=== PATIENT | male | born 1970 | race Caucasian/White ===

== ENCOUNTER 2017-03-31 05:44 | Inpatient (IN) | payer MEDICARE, MEDICAID ==
[~2017-03-31] VITALS: Ht 182.9 cm; Wt 210.1 kg
[2017-03-31] MEDS ORDERED: SODIUM CHLORIDE FLUSH 10ML SYR IVF ONE (06:00)
[2017-03-31] MEDS ORDERED: INSU100C SQ-INSULIN (06:09)
[2017-03-31] MEDS ORDERED: INSU100V8 SQ (06:09)
[2017-03-31] MEDS ORDERED: DILTIAZEM 5 MG/ML, 5ML ONE (06:22)
[2017-03-31] MEDS ORDERED: DILTIAZEM 5 MG/ML, 5ML IVPush ONE ×2 (06:30→08:00)
[2017-03-31 06:38] LABS: HEMATOCRIT 49.6 % (39.2-51.8); HEMOGLOBIN 15.8 g/dL (13.7-18.0); WHITE BLOOD COUNT 7.2 x10^3/uL (3.4-10)
[2017-03-31 06:51] LABS: ASPARTATE AMINO TRANSFERASE 19 U/L (15-37); BLOOD UREA NITROGEN 5 mg/dL (7-18)
[2017-03-31 06:55] LABS: IS PT STATUS REG ER OR PRE ER? YES
[2017-03-31] MEDS ORDERED: ADENOSINE 6 MG/2 ML ONE ×3 (08:18→08:33)
[2017-03-31] MEDS ORDERED: ADENOSINE 6 MG/2 ML IVPush ONE ×3 (08:30→10:30)
[2017-03-31] MEDS ORDERED: OMNIPAQUE 350 MG/ML, 150 ML BOTTLE ONE (09:11)
[2017-03-31 10:26] LABS: ANTI-Xa-UNFRACTIONATED HEP 0.01 IU/mL (0.30-0.70)
[2017-03-31] MEDS: ASPIRIN 81 MG TABLET EC PO SCH (10:47)
[2017-03-31] MEDS ORDERED: HEPARIN 5,000 UNITS/ML, 1ML ONE (10:56)
[2017-03-31] MEDS ORDERED: HEPARIN 25,000 UNITS/500ML PMX 500 ML ONE (10:57)
[2017-03-31] MEDS ORDERED: HEPARIN 5,000 UNITS/ML, 1ML IV ONE (11:00)
[2017-03-31] MEDS ORDERED: HEPARIN 25,000 UNITS/500ML PMX 500 ML IV PRN (11:00)
[2017-03-31] MEDS ORDERED: HEPARIN 5,000 UNITS/ML, 1ML IV PRN (11:00)
[2017-03-31 14:00] VITALS: BP 159/106
[2017-03-31] MEDS ORDERED: BISACODYL 10 MG SUPP PR PRN (14:00)
[2017-03-31] MEDS ORDERED: DILTIAZEM 5 MG/ML, 5ML IVPush PRN (14:00)
[2017-03-31] MEDS ORDERED: ACETAMINOPHEN 325 MG TABLET PO PRN (14:00)
[2017-03-31] MEDS ORDERED: GLUCAGON 1 MG IM PRN (14:00)
[2017-03-31] MEDS ORDERED: DEXTROSE 4 GM TAB.CHEW PO PRN (14:00)
[2017-03-31] MEDS ORDERED: DEXTROSE 50%, 50ML SYRINGE IVPush PRN (14:00)
[2017-03-31] MEDS ORDERED: POLYETHYLENE GLYCOL 17 GM PACKET PO PRN (14:00)
[2017-03-31] MEDS ORDERED: DOCUSATE 100 MG CAPSULE PO PRN (14:00)
[2017-03-31 14:55] LABS: IS PT STATUS REG ER OR PRE ER? NO
[2017-03-31] MEDS: APIXABAN 5 MG TABLET PO SCH ×2 (15:36→20:32)
[2017-03-31] MEDS: METOPROLOL TARTRATE 25 MG TABLET PO SCH (17:33)
[2017-03-31 19:44] LABS: IS PT STATUS REG ER OR PRE ER? NO
[2017-03-31 20:00] VITALS: BP 150/101
[2017-03-31] MEDS: INSULIN ASPART 100 UNITS/ML, PEN SQ-INSULIN SCH (20:22)
[2017-03-31] MEDS: SODIUM CHLORIDE FLUSH 10ML SYR IVF SCH (20:32)
[2017-03-31] MEDS ORDERED: INSULIN REGULAR 100 UNITS/ML, 3ML VIAL SQ-INSULIN SCH (21:00)
[2017-03-31 21:42] LABS: PATH.CAST-FLAG NOT PRESENT; SPERM-FLAG NOT PRESENT; SRC-FLAG NOT PRESENT; XTAL-FLAG NOT PRESENT; YLC-FLAG NOT PRESENT
[2017-04-01 02:00] VITALS: BP 138/90
[2017-04-01 05:47] LABS: HEMATOCRIT 43.9 % (39.2-51.8); HEMOGLOBIN 13.8 g/dL (13.7-18.0); WHITE BLOOD COUNT 5.8 x10^3/uL (3.4-10)
[2017-04-01 06:00] LABS: ASPARTATE AMINO TRANSFERASE 12 U/L (15-37); BLOOD UREA NITROGEN 8 mg/dL (7-18)
[2017-04-01] MEDS: METOPROLOL TARTRATE 25 MG TABLET PO SCH ×2 (06:06→17:07)
[2017-04-01] MEDS: ASPIRIN 81 MG TABLET EC PO SCH (06:06)
[2017-04-01] MEDS: INSULIN ASPART 100 UNITS/ML, PEN SQ-INSULIN SCH ×4 (07:00→21:00)
[2017-04-01 07:20] VITALS: BP 131/93
[2017-04-01] MEDS: SODIUM CHLORIDE FLUSH 10ML SYR IVF SCH ×2 (08:52→21:28)
[2017-04-01] MEDS: APIXABAN 5 MG TABLET PO SCH ×2 (08:52→21:28)
[2017-04-01 12:52] VITALS: BP 123/84
[2017-04-01 20:00] VITALS: BP 119/82
[2017-04-02 02:00] VITALS: BP 111/79
[2017-04-02] MEDS: METOPROLOL TARTRATE 25 MG TABLET PO SCH (05:19)
[2017-04-02] MEDS: ASPIRIN 81 MG TABLET EC PO SCH (05:19)
[2017-04-02 08:13] VITALS: BP 124/84
[2017-04-02] MEDS: SODIUM CHLORIDE FLUSH 10ML SYR IVF SCH (09:00)
[2017-04-02] MEDS: APIXABAN 5 MG TABLET PO SCH (10:10)
[2017-04-02] MEDS: INSULIN ASPART 100 UNITS/ML, PEN SQ-INSULIN SCH ×2 (10:10→11:00)
[2017-04-02] MEDS ORDERED: METO25TA35 PO (10:13)
[2017-04-02] MEDS ORDERED: APIX5TAB PO (10:13)
[2017-04-02] MEDS ORDERED: ASPI-621 PO (10:13)
[2017-04-02] MEDS ORDERED: PNEUMOCOCCAL VACC.PER PHARMACY IM ONE (13:30)
== END 2017-04-02 15:32 | disposition home or self-care (01) | DRG 682 ==
LOC: ED 07:23 → EDIP 10:21 → 4WST 11:45
PROVIDERS: ADMIT Family Medicine; ATTEND Family Medicine
PROC: 5A2204Z Restoration of Cardiac Rhythm, Single (ICD-10-PCS; principal; 2017-03-31)
DX: N17.9 Acute kidney failure, unspecified (principal); I26.99 Other pulmonary embolism without acute cor pulmonale; J96.00 Acute respiratory failure, unspecified whether with hypoxia or hypercapnia; J18.9 Pneumonia, unspecified organism; I11.0 Hypertensive heart disease with heart failure; I08.1 Rheumatic disorders of both mitral and tricuspid valves; I50.9 Heart failure, unspecified; Z68.44 Body mass index [BMI] 60.0-69.9, adult; E46 Unspecified protein-calorie malnutrition; E87.1 Hypo-osmolality and hyponatremia; I47.1 Supraventricular tachycardia; E66.01 Morbid (severe) obesity due to excess calories; E11.9 Type 2 diabetes mellitus without complications; I73.9 Peripheral vascular disease, unspecified; N50.82 Scrotal pain; K40.90 Unilateral inguinal hernia, without obstruction or gangrene, not specified as recurrent; R79.1 Abnormal coagulation profile; Z79.4 Long term (current) use of insulin; Z87.01 Personal history of pneumonia (recurrent); Z91.14 Patient's other noncompliance with medication regimen; Z88.0 Allergy status to penicillin
CPT/HCPCS: 36415; 71275; 74022; 74176; 76870; 80053; 81001; 82962; 83690; 83735; 83880; 84100; 84484; 85025; 85379; 85520; 85610; 85730; 87040; 87086; 92960; 93005; 96374; 96375; C8929; J0153; J1644; J1815; Q9967

== ENCOUNTER 2017-06-11 03:37 | Inpatient (IN) | payer MEDICARE, MEDICAID ==
[~2017-06-11] VITALS: Ht 182.9 cm; Wt 220.0 kg
[~2017-06-11 03:37] MED LIST: APIX5TAB PO; ASPI-621 PO; INSU100C SQ-INSULIN; INSU100V8 SQ; METO25TA35 PO
[2017-06-11] MEDS ORDERED: ADENOSINE 6 MG/2 ML ONE ×2 (03:46→03:51)
[2017-06-11] MEDS ORDERED: ADENOSINE 6 MG/2 ML IVPush ONE ×2 (04:00)
[2017-06-11] MEDS ORDERED: SODIUM CHLORIDE 0.9% 1,000ML IVBOLUS ONE ×2 (04:00→04:30)
[2017-06-11 04:08] LABS: HEMATOCRIT 53.2 % (39.2-51.8); WHITE BLOOD COUNT 11.4 x10^3/uL (3.4-10)
[2017-06-11 04:10] LABS: ASPARTATE AMINO TRANSFERASE 486 U/L (15-37); BLOOD UREA NITROGEN 35 mg/dL (7-18)
[2017-06-11 04:17] LABS: IS PT STATUS REG ER OR PRE ER? YES
[2017-06-11] MEDS ORDERED: ONDANSETRON 2MG/ML, 2ML IVPush PRN ×2 (05:00→06:00)
[2017-06-11] MEDS ORDERED: MORPHINE SULFATE 4 MG/ML, 1ML IVPush PRN (05:00)
[2017-06-11] MEDS ORDERED: SODIUM CHLORIDE 0.9% 1,000 ML IV SCH (05:53)
[2017-06-11] MEDS ORDERED: HYDROcodone/APAP 5/325 TABLET PO PRN (06:00)
[2017-06-11] MEDS ORDERED: POLYETHYLENE GLYCOL 17 GM PACKET PO PRN (06:00)
[2017-06-11] MEDS ORDERED: ACETAMINOPHEN 325 MG TABLET PO PRN (06:00)
[2017-06-11] MEDS ORDERED: DEXTROSE 4 GM TAB.CHEW PO PRN (06:00)
[2017-06-11] MEDS ORDERED: morphine SULFATE 10 MG/ML, 1ML IVPush PRN (06:00)
[2017-06-11] MEDS ORDERED: DEXTROSE 50%, 50ML SYRINGE IVPush PRN (06:00)
[2017-06-11] MEDS ORDERED: GLUCAGON 1 MG IM PRN (06:00)
[2017-06-11] MEDS ORDERED: HEPARIN 5,000 UNITS/ML, 1ML IV ONE (06:00)
[2017-06-11] MEDS ORDERED: DOCUSATE 100 MG CAPSULE PO PRN (06:00)
[2017-06-11] MEDS ORDERED: FUROSEMIDE 40 MG/4 ML ONE ×2 (09:12→20:44)
[2017-06-11] MEDS ORDERED: FUROSEMIDE 100 MG/10 ML IV ONE ×2 (09:30→21:00)
[2017-06-11] MEDS: PANTOPROZOLE 40MG TABLET PO SCH (10:04)
[2017-06-11] MEDS: SENNA/DOCUSATE TABLET PO SCH (10:05)
[2017-06-11] MEDS: ASPIRIN 81 MG TABLET EC PO SCH (10:05)
[2017-06-11] MEDS: METOPROLOL TARTRATE 25 MG TABLET PO SCH ×2 (10:06→18:39)
[2017-06-11] MEDS: SODIUM CHLORIDE FLUSH 10ML SYR IVF SCH ×2 (10:35→21:52)
[2017-06-11 10:43] LABS: ABG COLLECTION SITE RIGHT RADIAL; COLLATERAL CIRCULATION TESTING NORMAL
[2017-06-11 10:58] LABS: IS PT STATUS REG ER OR PRE ER? NO
[2017-06-11 16:37] LABS: IS PT STATUS REG ER OR PRE ER? NO
[2017-06-11] MEDS: HEPARIN 5,000 UNITS/ML, 1ML IV PRN (18:39)
[2017-06-12] MEDS: HEPARIN 25,000 UNITS/500ML PMX 500 ML IV PRN ×2 (01:11→16:08)
[2017-06-12] MEDS: HEPARIN 5,000 UNITS/ML, 1ML IV PRN ×3 (01:11→17:28)
[2017-06-12 04:00] VITALS: BP 123/82
[2017-06-12] MEDS ORDERED: SODIUM CHLORIDE 0.9% 1,000 ML IV SCH (04:30)
[2017-06-12 04:52] LABS: BLOOD UREA NITROGEN 38 mg/dL (7-18)
[2017-06-12 04:59] LABS: HEMATOCRIT 46.3 % (39.2-51.8); HEMOGLOBIN 15.1 g/dL (13.7-18.0); WHITE BLOOD COUNT 7.9 x10^3/uL (3.4-10)
[2017-06-12 05:09] LABS: ASPARTATE AMINO TRANSFERASE 246 U/L (15-37)
[2017-06-12] MEDS: ASPIRIN 81 MG TABLET EC PO SCH (06:09)
[2017-06-12] MEDS: METOPROLOL TARTRATE 25 MG TABLET PO SCH ×2 (06:16→17:30)
[2017-06-12] MEDS: PANTOPROZOLE 40MG TABLET PO SCH (08:09)
[2017-06-12] MEDS: SODIUM CHLORIDE FLUSH 10ML SYR IVF SCH ×2 (08:09→20:49)
[2017-06-12] MEDS: SENNA/DOCUSATE TABLET PO SCH (08:10)
[2017-06-12] MEDS ORDERED: FUROSEMIDE 100 MG/10 ML IV ONE (10:00)
[2017-06-13] MEDS: HEPARIN 5,000 UNITS/ML, 1ML IV PRN ×2 (01:22→09:06)
[2017-06-13 04:32] LABS: HEMATOCRIT 45.3 % (39.2-51.8); HEMOGLOBIN 14.5 g/dL (13.7-18.0); WHITE BLOOD COUNT 7.9 x10^3/uL (3.4-10)
[2017-06-13 04:45] LABS: BLOOD UREA NITROGEN 43 mg/dL (7-18)
[2017-06-13 04:50] LABS: ASPARTATE AMINO TRANSFERASE 138 U/L (15-37)
[2017-06-13] MEDS: ASPIRIN 81 MG TABLET EC PO SCH (05:41)
[2017-06-13] MEDS: METOPROLOL TARTRATE 25 MG TABLET PO SCH ×2 (05:45→17:33)
[2017-06-13] MEDS: HEPARIN 25,000 UNITS/500ML PMX 500 ML IV PRN ×2 (07:34→18:24)
[2017-06-13] MEDS ORDERED: FUROSEMIDE 100 MG/10 ML IV ONE (09:00)
[2017-06-13] MEDS: PANTOPROZOLE 40MG TABLET PO SCH (09:04)
[2017-06-13] MEDS: SENNA/DOCUSATE TABLET PO SCH (09:04)
[2017-06-13] MEDS: SODIUM CHLORIDE FLUSH 10ML SYR IVF SCH ×2 (09:06→19:53)
[2017-06-14] MEDS: HEPARIN 25,000 UNITS/500ML PMX 500 ML IV PRN (05:18)
[2017-06-14] MEDS: ASPIRIN 81 MG TABLET EC PO SCH (05:21)
[2017-06-14] MEDS: METOPROLOL TARTRATE 25 MG TABLET PO SCH ×2 (05:23→18:27)
[2017-06-14 06:06] LABS: HEMOGLOBIN 14.1 g/dL (13.7-18.0)
[2017-06-14 06:09] LABS: BLOOD UREA NITROGEN 48 mg/dL (7-18)
[2017-06-14] MEDS: HEPARIN 5,000 UNITS/ML, 1ML IV PRN (06:20)
[2017-06-14] MEDS: SENNA/DOCUSATE TABLET PO SCH (08:00)
[2017-06-14] MEDS: PANTOPROZOLE 40MG TABLET PO SCH (08:00)
[2017-06-14] MEDS: SODIUM CHLORIDE FLUSH 10ML SYR IVF SCH ×2 (08:01→20:43)
[2017-06-14] MEDS: APIXABAN 5 MG TABLET PO SCH ×2 (09:33→20:43)
[2017-06-14] MEDS ORDERED: FUROSEMIDE 100 MG/10 ML IV ONE (10:00)
[2017-06-14 19:56] VITALS: BP 124/84
[2017-06-15 02:00] VITALS: BP 95/62
[2017-06-15 04:18] VITALS: BP 102/68
[2017-06-15] MEDS: ASPIRIN 81 MG TABLET EC PO SCH (05:50)
[2017-06-15] MEDS: METOPROLOL TARTRATE 25 MG TABLET PO SCH ×2 (05:50→17:38)
[2017-06-15 08:01] VITALS: BP 116/79
[2017-06-15] MEDS: SODIUM CHLORIDE FLUSH 10ML SYR IVF SCH ×2 (08:07→22:07)
[2017-06-15] MEDS: APIXABAN 5 MG TABLET PO SCH ×2 (08:07→22:07)
[2017-06-15] MEDS: PANTOPROZOLE 40MG TABLET PO SCH (08:08)
[2017-06-15] MEDS: SENNA/DOCUSATE TABLET PO SCH (08:08)
[2017-06-15] MEDS ORDERED: FUROSEMIDE 100 MG/10 ML IV ONE (11:00)
[2017-06-15 12:54] VITALS: BP 113/76
[2017-06-15 13:48] VITALS: BP 125/84
[2017-06-15] MEDS ORDERED: DEXTROSE 50%, 50ML SYRINGE IVPush PRN (18:30)
[2017-06-15] MEDS ORDERED: POLYETHYLENE GLYCOL 17 GM PACKET PO PRN (18:30)
[2017-06-15] MEDS ORDERED: morphine SULFATE 10 MG/ML, 1ML IVPush PRN (18:30)
[2017-06-15] MEDS ORDERED: GLUCAGON 1 MG IM PRN (18:30)
[2017-06-15] MEDS ORDERED: HYDROcodone/APAP 5/325 TABLET PO PRN (18:30)
[2017-06-15] MEDS ORDERED: ACETAMINOPHEN 325 MG TABLET PO PRN ×2 (18:30→19:00)
[2017-06-15] MEDS ORDERED: ONDANSETRON 2MG/ML, 2ML IVPush PRN (18:30)
[2017-06-15] MEDS ORDERED: DOCUSATE 100 MG CAPSULE PO PRN (18:30)
[2017-06-15 20:46] VITALS: BP 101/68
[2017-06-16 00:30] VITALS: BP 105/73
[2017-06-16 04:33] VITALS: BP 109/73
[2017-06-16] MEDS: ASPIRIN 81 MG TABLET EC PO SCH (05:09)
[2017-06-16] MEDS: METOPROLOL TARTRATE 25 MG TABLET PO SCH ×2 (05:09→20:57)
[2017-06-16 05:23] LABS: BLOOD UREA NITROGEN 44 mg/dL (7-18)
[2017-06-16 07:06] VITALS: BP 123/80
[2017-06-16] MEDS: SENNA/DOCUSATE TABLET PO SCH (08:01)
[2017-06-16] MEDS: PANTOPROZOLE 40MG TABLET PO SCH (08:01)
[2017-06-16] MEDS: SODIUM CHLORIDE FLUSH 10ML SYR IVF SCH ×2 (08:01→20:57)
[2017-06-16] MEDS: APIXABAN 5 MG TABLET PO SCH ×2 (08:01→20:57)
[2017-06-16 13:26] VITALS: BP 119/83
[2017-06-16 16:13] VITALS: BP 131/84
[2017-06-16] MEDS ORDERED: ALBUTEROL SULFATE 2.5 MG/3 ML ONE (20:10)
[2017-06-16 20:59] VITALS: BP 131/82
[2017-06-16 21:33] LABS: ABG COLLECTION SITE LEFT BRACHIAL
[2017-06-16] MEDS ORDERED: CEFTRIAXONE PMX 1GM/50ML 50 ML IV SCH (22:00)
[2017-06-16] MEDS: AZITHROMYCIN 500 MG in SODIUM CHLORIDE 0.9% 250 ML IV SCH (23:14)
[2017-06-17] MEDS: LEVOFLOXACIN/PMX 750MG/150ML 150 ML IV SCH (01:08)
[2017-06-17 02:09] VITALS: BP 100/65
[2017-06-17] MEDS: ASPIRIN 81 MG TABLET EC PO SCH (05:57)
[2017-06-17] MEDS: METOPROLOL TARTRATE 25 MG TABLET PO SCH ×3 (05:57→21:33)
[2017-06-17] MEDS ORDERED: ALBUTEROL SULFATE 2.5 MG/3 ML ONE (07:28)
[2017-06-17] MEDS ORDERED: FUROSEMIDE 40 MG/4 ML IV ONE (07:30)
[2017-06-17] MEDS: ALBUTEROL SULFATE 2.5 MG/3 ML NPPB SCH ×4 (07:31→22:13)
[2017-06-17 08:20] VITALS: BP 133/88
[2017-06-17 08:51] LABS: ABG COLLECTION SITE RIGHT RADIAL; COLLATERAL CIRCULATION TESTING NORMAL
[2017-06-17] MEDS: APIXABAN 5 MG TABLET PO SCH ×2 (09:56→21:33)
[2017-06-17] MEDS: PANTOPROZOLE 40MG TABLET PO SCH (09:56)
[2017-06-17] MEDS: SENNA/DOCUSATE TABLET PO SCH (09:56)
[2017-06-17] MEDS: SODIUM CHLORIDE FLUSH 10ML SYR IVF SCH ×2 (09:57→21:32)
[2017-06-17 14:55] VITALS: BP 117/78
[2017-06-17] MEDS ORDERED: ALBUTEROL SULFATE 2.5 MG/3 ML NPPB SCH (15:00)
[2017-06-17 18:45] LABS: ABG COLLECTION SITE RIGHT BRACHIAL
[2017-06-17] MEDS: AZITHROMYCIN 500 MG in SODIUM CHLORIDE 0.9% 250 ML IV SCH (21:40)
[2017-06-18] MEDS: ALBUTEROL SULFATE 2.5 MG/3 ML NPPB SCH ×6 (02:11→22:38)
[2017-06-18] MEDS: LEVOFLOXACIN/PMX 750MG/150ML 150 ML IV SCH (02:16)
[2017-06-18 04:52] LABS: ABG COLLECTION SITE LEFT RADIAL; COLLATERAL CIRCULATION TESTING NORMAL
[2017-06-18 04:53] LABS: HEMATOCRIT 42.7 % (39.2-51.8); HEMOGLOBIN 13.6 g/dL (13.7-18.0); WHITE BLOOD COUNT 5.9 x10^3/uL (3.4-10)
[2017-06-18 05:01] LABS: BLOOD UREA NITROGEN 40 mg/dL (7-18)
[2017-06-18] MEDS: METOPROLOL TARTRATE 25 MG TABLET PO SCH ×2 (06:04→17:42)
[2017-06-18] MEDS: ASPIRIN 81 MG TABLET EC PO SCH (06:04)
[2017-06-18] MEDS: APIXABAN 5 MG TABLET PO SCH ×2 (08:34→20:55)
[2017-06-18] MEDS: SODIUM CHLORIDE FLUSH 10ML SYR IVF SCH ×2 (08:34→20:55)
[2017-06-18] MEDS: SENNA/DOCUSATE TABLET PO SCH (08:34)
[2017-06-18] MEDS: PANTOPROZOLE 40MG TABLET PO SCH (08:34)
[2017-06-18] MEDS ORDERED: FUROSEMIDE 20 MG/2 ML IV SCH (09:00)
[2017-06-18] MEDS ORDERED: FUROSEMIDE 40 MG/4 ML IV SCH (21:00)
[2017-06-19] MEDS: ALBUTEROL SULFATE 2.5 MG/3 ML NPPB SCH ×6 (03:00→22:25)
[2017-06-19 04:31] LABS: ABG COLLECTION SITE RIGHT RADIAL; COLLATERAL CIRCULATION TESTING NORMAL
[2017-06-19 04:32] LABS: HEMATOCRIT 44.3 % (39.2-51.8); HEMOGLOBIN 13.9 g/dL (13.7-18.0); WHITE BLOOD COUNT 5.4 x10^3/uL (3.4-10)
[2017-06-19 04:41] LABS: BLOOD UREA NITROGEN 36 mg/dL (7-18)
[2017-06-19 04:44] LABS: ASPARTATE AMINO TRANSFERASE 18 U/L (15-37)
[2017-06-19] MEDS: ASPIRIN 81 MG TABLET EC PO SCH (05:55)
[2017-06-19] MEDS: METOPROLOL TARTRATE 25 MG TABLET PO SCH ×2 (05:59→17:13)
[2017-06-19] MEDS ORDERED: MAGNESIUM SULFATE PMX 4GM/100M 100 ML IV ONE (07:30)
[2017-06-19] MEDS: PANTOPROZOLE 40MG TABLET PO SCH (07:53)
[2017-06-19] MEDS: APIXABAN 5 MG TABLET PO SCH ×2 (07:54→21:28)
[2017-06-19] MEDS: SENNA/DOCUSATE TABLET PO SCH (07:54)
[2017-06-19] MEDS: SODIUM CHLORIDE FLUSH 10ML SYR IVF SCH ×2 (07:54→21:28)
[2017-06-19] MEDS: FUROSEMIDE 40 MG/4 ML IV SCH ×2 (08:44→21:28)
[2017-06-19] MEDS ORDERED: METOPROLOL TARTRATE 50 MG TABLET ONE (17:00)
[2017-06-20] MEDS: ALBUTEROL SULFATE 2.5 MG/3 ML NPPB SCH ×4 (02:39→15:00)
[2017-06-20 05:33] LABS: HEMATOCRIT 42.7 % (39.2-51.8); HEMOGLOBIN 13.7 g/dL (13.7-18.0); WHITE BLOOD COUNT 5.5 x10^3/uL (3.4-10)
[2017-06-20 05:37] LABS: BLOOD UREA NITROGEN 30 mg/dL (7-18)
[2017-06-20 05:39] LABS: ASPARTATE AMINO TRANSFERASE 21 U/L (15-37)
[2017-06-20] MEDS: METOPROLOL TARTRATE 25 MG TABLET PO SCH (06:20)
[2017-06-20] MEDS: ASPIRIN 81 MG TABLET EC PO SCH (06:20)
[2017-06-20] MEDS: SODIUM CHLORIDE FLUSH 10ML SYR IVF SCH (08:21)
[2017-06-20] MEDS: SENNA/DOCUSATE TABLET PO SCH (08:21)
[2017-06-20] MEDS: APIXABAN 5 MG TABLET PO SCH (08:21)
[2017-06-20] MEDS: PANTOPROZOLE 40MG TABLET PO SCH (08:21)
[2017-06-20] MEDS ORDERED: FURO10VI37 IV (13:52)
[2017-06-20] MEDS ORDERED: PANT40TA5 PO (13:52)
[2017-06-20] MEDS ORDERED: FUROSEMIDE 40 MG/4 ML IV SCH (17:00)
== END 2017-06-20 15:30 | DRG 682 ==
LOC: ED 03:51 → EDIP 04:46 → CCU 06:23 → 4NOR 06-14 13:55 → CCU 06-17 17:01
PROVIDERS: ADMIT Family Medicine; ATTEND Family Medicine
PROC: 0T9B70Z Drainage of Bladder with Drainage Device, Via Natural or Artificial Opening (ICD-10-PCS; 2017-06-11)
PROC: 5A09457 Assistance with Respiratory Ventilation, 24-96 Consecutive Hours, Continuous Positive Airway Pressure (ICD-10-PCS; 2017-06-11)
PROC: 5A09357 Assistance with Respiratory Ventilation, Less than 24 Consecutive Hours, Continuous Positive Airway Pressure (ICD-10-PCS; 2017-06-12)
PROC: 5A2204Z Restoration of Cardiac Rhythm, Single (ICD-10-PCS; principal; 2017-06-17)
PROC: 5A09457 Assistance with Respiratory Ventilation, 24-96 Consecutive Hours, Continuous Positive Airway Pressure (ICD-10-PCS; 2017-06-17)
DX: N17.0 Acute kidney failure with tubular necrosis (principal); J96.01 Acute respiratory failure with hypoxia; I50.33 Acute on chronic diastolic (congestive) heart failure; J18.9 Pneumonia, unspecified organism; D68.69 Other thrombophilia; E11.22 Type 2 diabetes mellitus with diabetic chronic kidney disease; E11.51 Type 2 diabetes mellitus with diabetic peripheral angiopathy without gangrene; D75.1 Secondary polycythemia; I47.1 Supraventricular tachycardia; E87.1 Hypo-osmolality and hyponatremia; Z68.44 Body mass index [BMI] 60.0-69.9, adult; J44.1 Chronic obstructive pulmonary disease with (acute) exacerbation; J44.0 Chronic obstructive pulmonary disease with (acute) lower respiratory infection; E87.2 Acidosis; J98.11 Atelectasis; N18.9 Chronic kidney disease, unspecified; E66.01 Morbid (severe) obesity due to excess calories; I27.81 Cor pulmonale (chronic); R74.0 Nonspecific elevation of levels of transaminase and lactic acid dehydrogenase [LDH]; Z51.5 Encounter for palliative care; Z79.01 Long term (current) use of anticoagulants; Z86.711 Personal history of pulmonary embolism; Z91.14 Patient's other noncompliance with medication regimen; Z88.0 Allergy status to penicillin
CPT/HCPCS: 36415; 36600; 71010; 80048; 80053; 81001; 82803; 82962; 83036; 83735; 83880; 84100; 84443; 84484; 85025; 85520; 87040; 87081; 87086; 93005; 93306; 93970; 94640; 94660; 96374; J0153; J0456; J1644; J1940; J1956; J7613; J2270; J3475; J7030; J7050

== ENCOUNTER 2017-06-30 18:35 | Inpatient (IN) | payer MEDICARE, MEDICAID ==
[~2017-06-30] VITALS: Ht 182.9 cm; Wt 219.6 kg
[~2017-06-30 18:35] MED LIST changes: +FURO10VI37 IV; +PANT40TA5 PO
[2017-06-30 19:26] LABS: HEMATOCRIT 40.5 % (39.2-51.8); HEMOGLOBIN 12.5 g/dL (13.7-18.0); WHITE BLOOD COUNT 6.1 x10^3/uL (3.4-10)
[2017-06-30 19:32] LABS: BLOOD UREA NITROGEN 22 mg/dL (7-18)
[2017-06-30 19:33] LABS: IS PT STATUS REG ER OR PRE ER? YES
[2017-06-30] MEDS ORDERED: ASPI-496 PO (21:00)
[2017-06-30] MEDS ORDERED: MAGN400T36 PO (21:00)
[2017-06-30] MEDS ORDERED: ONDANSETRON 2MG/ML, 2ML IVPush PRN (22:00)
[2017-06-30] MEDS ORDERED: ACETAMINOPHEN 325 MG TABLET PO PRN (22:00)
[2017-06-30] MEDS ORDERED: POLYETHYLENE GLYCOL 17 GM PACKET PO PRN (22:00)
[2017-06-30] MEDS ORDERED: BISACODYL 10 MG SUPP PR PRN (22:00)
[2017-06-30 22:48] VITALS: BP 123/83
[2017-06-30] MEDS: SODIUM CHLORIDE FLUSH 10ML SYR IVF SCH (23:30)
[2017-06-30] MEDS: FUROSEMIDE 40 MG/4 ML IV SCH (23:30)
[2017-06-30] MEDS: INSULIN ASPART 100 UNITS/ML, PEN SQ-INSULIN SCH (23:32)
[2017-06-30 23:39] VITALS: BP 123/75
[2017-07-01 01:54] LABS: IS PT STATUS REG ER OR PRE ER? NO
[2017-07-01 02:17] VITALS: BP 118/82
[2017-07-01 04:54] LABS: WHITE BLOOD COUNT 4.8 x10^3/uL (3.4-10)
[2017-07-01] MEDS: METOPROLOL TARTRATE 25 MG TABLET PO SCH ×2 (05:53→17:34)
[2017-07-01 06:50] VITALS: BP 103/69
[2017-07-01] MEDS: INSULIN ASPART 100 UNITS/ML, PEN SQ-INSULIN SCH ×4 (07:00→20:07)
[2017-07-01 07:40] LABS: BLOOD UREA NITROGEN 19 mg/dL (7-18)
[2017-07-01 07:46] LABS: ASPARTATE AMINO TRANSFERASE 18 U/L (15-37)
[2017-07-01 08:14] LABS: IS PT STATUS REG ER OR PRE ER? NO
[2017-07-01] MEDS: SENNA/DOCUSATE TABLET PO SCH (09:00)
[2017-07-01] MEDS: MAGNESIUM OXIDE 400 MG TABLET PO SCH (09:43)
[2017-07-01] MEDS: FUROSEMIDE 40 MG/4 ML IV SCH ×2 (09:43→17:33)
[2017-07-01] MEDS: ASPIRIN 81 MG TABLET EC PO SCH (09:43)
[2017-07-01] MEDS: APIXABAN 5 MG TABLET PO SCH ×2 (09:43→20:06)
[2017-07-01] MEDS: SODIUM CHLORIDE FLUSH 10ML SYR IVF SCH ×2 (09:44→20:07)
[2017-07-01 14:23] VITALS: BP 101/68
[2017-07-01 18:48] VITALS: BP 112/74
[2017-07-01 23:00] VITALS: BP 109/70
[2017-07-02 01:35] VITALS: BP 133/74
[2017-07-02] MEDS: METOPROLOL TARTRATE 25 MG TABLET PO SCH ×2 (05:38→17:37)
[2017-07-02] MEDS: INSULIN ASPART 100 UNITS/ML, PEN SQ-INSULIN SCH ×4 (07:00→21:00)
[2017-07-02] MEDS: FUROSEMIDE 40 MG/4 ML IV SCH (07:30)
[2017-07-02] MEDS: SENNA/DOCUSATE TABLET PO SCH (09:00)
[2017-07-02 09:16] VITALS: BP 92/63
[2017-07-02] MEDS: ASPIRIN 81 MG TABLET EC PO SCH (09:47)
[2017-07-02] MEDS: MAGNESIUM OXIDE 400 MG TABLET PO SCH (09:47)
[2017-07-02] MEDS: APIXABAN 5 MG TABLET PO SCH ×2 (09:47→22:11)
[2017-07-02] MEDS: SODIUM CHLORIDE FLUSH 10ML SYR IVF SCH ×2 (09:48→21:00)
[2017-07-02 14:48] VITALS: BP 119/77
[2017-07-02 19:27] VITALS: BP 105/71
[2017-07-03 01:56] VITALS: BP 112/75
[2017-07-03] MEDS: METOPROLOL TARTRATE 25 MG TABLET PO SCH ×2 (05:21→17:04)
[2017-07-03] MEDS: INSULIN ASPART 100 UNITS/ML, PEN SQ-INSULIN SCH ×4 (07:00→20:46)
[2017-07-03 08:07] VITALS: BP 114/73
[2017-07-03] MEDS: APIXABAN 5 MG TABLET PO SCH ×2 (08:16→20:45)
[2017-07-03] MEDS: MAGNESIUM OXIDE 400 MG TABLET PO SCH (08:16)
[2017-07-03] MEDS: SENNA/DOCUSATE TABLET PO SCH (08:16)
[2017-07-03] MEDS: ASPIRIN 81 MG TABLET EC PO SCH (08:16)
[2017-07-03] MEDS: SODIUM CHLORIDE FLUSH 10ML SYR IVF SCH ×2 (08:17→20:47)
[2017-07-03] MEDS ORDERED: FURO-92 PO (08:44)
[2017-07-03 14:30] VITALS: BP 119/81
[2017-07-03 20:33] VITALS: BP 115/75
[2017-07-04 01:55] VITALS: BP 105/65
[2017-07-04 05:59] VITALS: BP 114/75
[2017-07-04] MEDS: METOPROLOL TARTRATE 25 MG TABLET PO SCH (06:02)
[2017-07-04 06:55] VITALS: BP 109/82
[2017-07-04] MEDS: INSULIN ASPART 100 UNITS/ML, PEN SQ-INSULIN SCH ×2 (07:00→11:00)
[2017-07-04] MEDS: ASPIRIN 81 MG TABLET EC PO SCH (08:58)
[2017-07-04] MEDS: MAGNESIUM OXIDE 400 MG TABLET PO SCH (08:58)
[2017-07-04] MEDS: SENNA/DOCUSATE TABLET PO SCH (08:58)
[2017-07-04] MEDS: APIXABAN 5 MG TABLET PO SCH (08:58)
[2017-07-04] MEDS: SODIUM CHLORIDE FLUSH 10ML SYR IVF SCH (08:59)
[2017-07-04 15:00] VITALS: BP 124/74
== END 2017-07-04 16:00 | DRG 189 ==
LOC: ED 19:28 → 5SO 20:59 → 4WST 07-01 23:17
PROVIDERS: ADMIT Family Medicine; ATTEND Internal Medicine
DX: J96.21 Acute and chronic respiratory failure with hypoxia (principal); E87.4 Mixed disorder of acid-base balance; D68.59 Other primary thrombophilia; E44.0 Moderate protein-calorie malnutrition; E11.51 Type 2 diabetes mellitus with diabetic peripheral angiopathy without gangrene; E66.2 Morbid (severe) obesity with alveolar hypoventilation; E87.1 Hypo-osmolality and hyponatremia; Z68.44 Body mass index [BMI] 60.0-69.9, adult; I24.8 Other forms of acute ischemic heart disease; E88.81 Metabolic syndrome and other insulin resistance; I11.0 Hypertensive heart disease with heart failure; I50.9 Heart failure, unspecified; I87.8 Other specified disorders of veins; J44.9 Chronic obstructive pulmonary disease, unspecified; Z66 Do not resuscitate; I25.2 Old myocardial infarction; Z72.0 Tobacco use; Z79.4 Long term (current) use of insulin; Z86.711 Personal history of pulmonary embolism; Z88.0 Allergy status to penicillin
CPT/HCPCS: 36415; 71010; 80048; 80053; 82040; 82962; 83880; 84484; 85025; 85610; 85730; 93005; J1815; J1940

== ENCOUNTER 2017-07-29 14:17 | Emergency (ER) | payer MEDICARE, MEDICAID ==
[~2017-07-29] VITALS: Ht 182.9 cm; Wt 219.5 kg
[~2017-07-29 14:17] MED LIST changes: +ASPI-496 PO; +FURO-92 PO; +MAGN400T36 PO
[2017-07-29] MEDS ORDERED: TRAM50TA2 PO (14:46)
[2017-07-29] MEDS ORDERED: DOXY50CA42 PO (14:46)
[2017-07-29] MEDS ORDERED: FURO40TA6 PO (14:46)
[2017-07-29] MEDS ORDERED: OMEP20TA62 PO (14:46)
[2017-07-29] MEDS ORDERED: LISINOPRIL 20 MG TABLET ONE (16:28)
[2017-07-29] MEDS ORDERED: LISINOPRIL 20 MG TABLET PO ONE (16:30)
[2017-07-29 16:46] VITALS: BP 143/92
== END 2017-07-29 18:45 | disposition home or self-care (01) ==
LOC: ED 17:13
DX: I10 Essential (primary) hypertension (principal); J44.9 Chronic obstructive pulmonary disease, unspecified; E11.9 Type 2 diabetes mellitus without complications; I11.0 Hypertensive heart disease with heart failure; I50.9 Heart failure, unspecified; Z86.711 Personal history of pulmonary embolism; Z88.0 Allergy status to penicillin
CPT/HCPCS: 36415; 80047; 93005; 99285

== ENCOUNTER → 2017-10-13 | Outpatient (CLI) | payer MEDICARE, MEDICAID ==
[~2017-10-13] MED LIST changes: +DOXY50CA42 PO; +FURO40TA6 PO; +OMEP20TA62 PO; +TRAM50TA2 PO
== END | disposition home or self-care (01) ==
LOC: WOUND 11:45
PROVIDERS: ATTEND Internal Medicine
DX: E11.621 Type 2 diabetes mellitus with foot ulcer (principal); L89.623 Pressure ulcer of left heel, stage 3; L97.421 Non-pressure chronic ulcer of left heel and midfoot limited to breakdown of skin; L97.521 Non-pressure chronic ulcer of other part of left foot limited to breakdown of skin; E11.42 Type 2 diabetes mellitus with diabetic polyneuropathy; I11.0 Hypertensive heart disease with heart failure; I50.9 Heart failure, unspecified; J44.9 Chronic obstructive pulmonary disease, unspecified; E66.01 Morbid (severe) obesity due to excess calories; Z86.711 Personal history of pulmonary embolism; Z68.41 Body mass index [BMI] 40.0-44.9, adult; Z79.4 Long term (current) use of insulin
CPT/HCPCS: 11042; G0463; WOU0463

== ENCOUNTER → 2017-11-03 | Outpatient (CLI) | payer MEDICARE, MEDICAID | END | disposition home or self-care (01) | LOC: WOUND 13:00 | PROVIDERS: ATTEND Family Medicine | DX: E11.621 Type 2 diabetes mellitus with foot ulcer (principal); L97.521 Non-pressure chronic ulcer of other part of left foot limited to breakdown of skin; L97.421 Non-pressure chronic ulcer of left heel and midfoot limited to breakdown of skin; L89.623 Pressure ulcer of left heel, stage 3; E66.01 Morbid (severe) obesity due to excess calories; J44.9 Chronic obstructive pulmonary disease, unspecified; I11.0 Hypertensive heart disease with heart failure; I50.9 Heart failure, unspecified; E11.42 Type 2 diabetes mellitus with diabetic polyneuropathy; Z68.41 Body mass index [BMI] 40.0-44.9, adult; Z79.4 Long term (current) use of insulin; Z86.711 Personal history of pulmonary embolism | CPT/HCPCS: 17250; 97597 ==

== ENCOUNTER 2019-02-20 18:38 | Inpatient (IN) | payer MEDICARE, MEDICAID ==
[~2019-02-20] VITALS: Ht 185.4 cm; Wt 165.1 kg
[2019-02-23 06:45] VITALS: BP 106/70
== END 2019-02-23 12:12 | disposition home health service (06) | DRG 637 ==
LOC: ED 19:55 → EDIP 20:58 → 4WST 22:10 → DCLOUNGE 02-23 11:59
PROVIDERS: ADMIT Family Medicine; ATTEND Family Medicine
DX: E11.65 Type 2 diabetes mellitus with hyperglycemia (principal); E11.00 Type 2 diabetes mellitus with hyperosmolarity without nonketotic hyperglycemic-hyperosmolar coma (NKHHC); Z68.42 Body mass index [BMI] 45.0-49.9, adult; E87.1 Hypo-osmolality and hyponatremia; N39.0 Urinary tract infection, site not specified; E11.42 Type 2 diabetes mellitus with diabetic polyneuropathy; I11.0 Hypertensive heart disease with heart failure; M54.9 Dorsalgia, unspecified; I50.9 Heart failure, unspecified; I87.2 Venous insufficiency (chronic) (peripheral); J44.9 Chronic obstructive pulmonary disease, unspecified; E11.51 Type 2 diabetes mellitus with diabetic peripheral angiopathy without gangrene; F17.220 Nicotine dependence, chewing tobacco, uncomplicated; E66.01 Morbid (severe) obesity due to excess calories; Z79.01 Long term (current) use of anticoagulants; Z86.711 Personal history of pulmonary embolism; Z83.3 Family history of diabetes mellitus; Z87.01 Personal history of pneumonia (recurrent); Z79.899 Other long term (current) drug therapy; Z79.4 Long term (current) use of insulin
CPT/HCPCS: 36415; 71045; 80048; 80053; 81001; 82010; 82803; 82962; 83036; 83690; 83880; 84484; 85025; 87086; 93005; 96360; 96361; 96372; 99285; G0378; J1815; J7030

== ENCOUNTER 2021-01-12 07:09 | Observation (INO) | payer MEDICARE, MEDICAID ==
[~2021-01-12] VITALS: Ht 182.9 cm; Wt 182.3 kg
[~2021-01-12 07:09] MED LIST changes: -ASPI-621 PO; +ASPI81TA45 PO; +GABA300C10 PO; +INSU100I13 SQ-INSULIN; +LOSA25TA25 PO; -PANT40TA5 PO; +PANT40TA6 PO; +POTA20PA31 PO
--- NOTE | 2021-01-12 07:27 | NUR ---
PT BIBA. PER EMS PT HAS HAD FEVER AND SOB X3DAYS. PER PT HE HAD A FEVER OF 105F, BUT IT HAS SLOWLY GONE DONE SINCE. PT CURRENT TEMPERATURE 98.5F ORALLY. PT ALSO REPORTS FEELING SOB WHEN LYING DOWN THE LAST FEW DAYS, PT DOES HAVE HX OF CHF. PT STATES HE HAS NOT HAD COVID VACCINE, BUT ALSO HAS BEEN ISOLATING AT HOME. PER EMS PT HAD SPO2 SAT OF 89% UPON THEIR ARRIVAL, PT DOES NOT NORMALLY WEAR O2. PT CURRENTLY 95% ON 1L NASRA. JOHNNY GARRETT AND DR. ISBELL AT BEDSIDE FOR EVAL. PT RESTING IN [facility], MONITORING IN PLACE, EKG DONE UPON ARRIVAL, NADN AT THIS TIME, WCTM.
[2021-01-12] MEDS ORDERED: SODIUM CHLORIDE FLUSH 10ML SYR IVF ONE (07:30)
[2021-01-12] MEDS ORDERED: SODIUM CHLORIDE 0.9% 1,000 ML IV ONE (07:30)
[2021-01-12 07:50] LABS: RAPID INFLUENZA A Negative (Negative); RAPID INFLUENZA B Negative (Negative)
[2021-01-12 07:58] LABS: BASOPHILS % (AUTO) 1 % (0-1); EOSINOPHILS % (AUTO) 1 % (1-7); LYMPHOCYTES % (AUTO) 11 % (22-44); MEAN CORPUSCULAR HEMOGLOBIN 30.9 pg (27.5-34.5); MEAN CORPUSCULAR HGB CONC 33.7 g/dL (33.2-36.2); MEAN PLATELET VOLUME 8.4 fL (7.4-10.4); MONOCYTES % (AUTO) 8 % (2-9); NEUTROPHILS % (AUTO) 79 % (42-75); PLATELET COUNT 239 x10^3/uL (130-400); RED BLOOD COUNT 5.53 x10^6/uL (4.38-5.82); RED CELL DISTRIBUTION WIDTH 14.4 % (9.4-14.8)
[2021-01-12 08:09] LABS: ALANINE AMINOTRANSFERASE 24 U/L (12-78); ALBUMIN 2.7 g/dL (3.4-5.0); ANION GAP 7 mmol/L (5-15); CALCIUM 8.2 mg/dL (8.5-10.1); CHLORIDE 98 mmol/L (98-107); CREATININE 1.33 mg/dL (0.7-1.3)
[2021-01-12 08:13] LABS: ALKALINE PHOSPHATASE 138 U/L (45-117); BILIRUBIN,TOTAL 0.4 mg/dL (0.2-1.0); TROPONIN I < 0.015 ng/mL (0.000-0.045)
[2021-01-12] MEDS ORDERED: SODIUM CHLORIDE 0.9% 1,000ML IVBOLUS ONE (08:30)
[2021-01-12] MEDS ORDERED: CEFTRIAXONE 1,000 MG in DEXTROSE 5% 50 ML IVPB ONE ×2 (08:30→10:30)
--- NOTE | 2021-01-12 08:54 | NUR ---
RECEIVED REPORT AND ASSUMED PT. CARE. PT. IS RESTING WITH THE CP MONITOR IN PLACE. IV ABX ARE INFUSING. SIDERAILS REMAIN UP X 2 WITH THE CALL LIGHT IN PLACE. PT. IS RESTING WITHOUT CONCERNS AT THIS TIME.
--- NOTE | 2021-01-12 09:02 | NUR ---
REPORT TO DARIUS FOSTER.
--- NOTE | 2021-01-12 09:18 | NUR ---
FIRST ATTEMPT TO CALL REPORT.
[2021-01-12 09:57] LABS: C-REACTIVE PROTEIN, QUANT 6.6 mg/dL (0.02-0.49)
[2021-01-12] MEDS ORDERED: hydrALAzine 20 MG/ML, 1ML IVPush PRN (10:30)
[2021-01-12] MEDS ORDERED: MELATONIN 5 MG TABLET PO PRN (10:30)
[2021-01-12] MEDS ORDERED: ACETAMINOPHEN 325 MG TABLET PO PRN (10:30)
[2021-01-12] MEDS ORDERED: ONDANSETRON 2MG/ML, 2ML IVPush PRN (10:30)
--- NOTE | 2021-01-12 10:43 | NUR ---
REPORT WAS CALLLED TO DULCE MARIA MCCOY. PT.'S IV ABX ARE INFUSING ON THE PUMP. PT. HAS NO COMPLAINTS AT THIS TIME. VSS. PT. IS READY FOR TRANSPORT.
[2021-01-12] MEDS ORDERED: METRONIDAZOLE PMX 500MG/100ML 100 ML ONE (10:46)
[2021-01-12] MEDS: METRONIDAZOLE PMX 500MG/100ML 100 ML IV SCH ×2 (10:52→18:29)
[2021-01-12] MEDS ORDERED: ATOR-2 PO (11:34)
[2021-01-12] MEDS ORDERED: ATOR20TA37 PO (11:34)
[2021-01-12 11:57] VITALS: BP 106/77
[2021-01-12] MEDS: INSULIN LISPRO 100 UNITS/ML, PEN SQ-INSULIN SCH ×5 (12:41→21:09)
[2021-01-12 15:20] VITALS: BP 117/86
[2021-01-12 20:11] VITALS: BP 112/72
[2021-01-12] MEDS: GABAPENTIN 300 MG CAPSULE PO SCH (20:56)
[2021-01-12] MEDS: APIXABAN 5 MG TABLET PO SCH (20:56)
[2021-01-12] MEDS: SODIUM CHLORIDE FLUSH 10ML SYR IVF SCH (20:56)
[2021-01-12] MEDS: INSULIN GLARGINE 100 UNITS/ML, PEN SQ-INSULIN SCH (21:09)
[2021-01-12 22:15] LABS: MICROSCOPIC INDICATED
[2021-01-13] MEDS: METRONIDAZOLE PMX 500MG/100ML 100 ML IV SCH ×2 (02:36→10:20)
[2021-01-13 02:38] VITALS: BP 128/84
[2021-01-13 05:23] LABS: BASOPHILS % (AUTO) 1 % (0-1); EOSINOPHILS % (AUTO) 4 % (1-7); LYMPHOCYTES % (AUTO) 24 % (22-44); MEAN CORPUSCULAR HEMOGLOBIN 30.5 pg (27.5-34.5); MEAN CORPUSCULAR HGB CONC 33.1 g/dL (33.2-36.2); MEAN PLATELET VOLUME 8.5 fL (7.4-10.4); MONOCYTES % (AUTO) 9 % (2-9); NEUTROPHILS % (AUTO) 62 % (42-75); PLATELET COUNT 229 x10^3/uL (130-400); RED BLOOD COUNT 5.58 x10^6/uL (4.38-5.82)
[2021-01-13 05:24] LABS: CHLORIDE 103 mmol/L (98-107)
[2021-01-13 05:31] LABS: ANION GAP 7 mmol/L (5-15); CALCIUM 8.4 mg/dL (8.5-10.1); CREATININE 1.28 mg/dL (0.7-1.3)
[2021-01-13 05:32] LABS: ALANINE AMINOTRANSFERASE 23 U/L (12-78); ALBUMIN 2.6 g/dL (3.4-5.0); ALKALINE PHOSPHATASE 123 U/L (45-117); BILIRUBIN,TOTAL 0.3 mg/dL (0.2-1.0); TOTAL PROTEIN 8.2 g/dL (6.4-8.2)
[2021-01-13 07:41] VITALS: BP 135/83
[2021-01-13] MEDS: INSULIN LISPRO 100 UNITS/ML, PEN SQ-INSULIN SCH ×4 (07:52→11:32)
[2021-01-13] MEDS: SODIUM CHLORIDE FLUSH 10ML SYR IVF SCH (08:33)
[2021-01-13] MEDS: APIXABAN 5 MG TABLET PO SCH (08:33)
[2021-01-13] MEDS: GABAPENTIN 300 MG CAPSULE PO SCH (08:33)
[2021-01-13] MEDS: INSULIN GLARGINE 100 UNITS/ML, PEN SQ-INSULIN SCH (08:40)
[2021-01-13] MEDS ORDERED: CEFTRIAXONE 2 GM in DEXTROSE 5% 50 ML IVPB SCH (09:00)
[2021-01-13] MEDS ORDERED: PANTOPRAZOLE 40MG TABLET PO SCH (09:00)
[2021-01-13] MEDS ORDERED: LOSARTAN 25MG TABLET PO SCH (09:00)
[2021-01-13] MEDS ORDERED: CEFD300C37 PO (12:08)
[2021-01-13 14:08] VITALS: BP 113/68
== END 2021-01-13 17:21 | disposition home or self-care (01) ==
LOC: ED 08:19 → EDIP 08:55 → INTOOBSV 08:55 → 3N 11:03
PROVIDERS: ADMIT Hospitalist; ATTEND Hospitalist
DX: R50.9 Fever, unspecified (principal); Z20.822 Contact with and (suspected) exposure to COVID-19; J96.01 Acute respiratory failure with hypoxia; D75.1 Secondary polycythemia; I13.0 Hypertensive heart and chronic kidney disease with heart failure and stage 1 through stage 4 chronic kidney disease, or unspecified chronic kidney disease; E11.22 Type 2 diabetes mellitus with diabetic chronic kidney disease; I50.9 Heart failure, unspecified; N18.2 Chronic kidney disease, stage 2 (mild); E87.1 Hypo-osmolality and hyponatremia; E11.65 Type 2 diabetes mellitus with hyperglycemia; K40.90 Unilateral inguinal hernia, without obstruction or gangrene, not specified as recurrent; I26.99 Other pulmonary embolism without acute cor pulmonale; I47.1 Supraventricular tachycardia; I07.1 Rheumatic tricuspid insufficiency; J44.9 Chronic obstructive pulmonary disease, unspecified; I25.2 Old myocardial infarction; N39.0 Urinary tract infection, site not specified; I27.81 Cor pulmonale (chronic); R31.29 Other microscopic hematuria; E66.01 Morbid (severe) obesity due to excess calories; F17.220 Nicotine dependence, chewing tobacco, uncomplicated; Z79.899 Other long term (current) drug therapy; Z88.0 Allergy status to penicillin; Z86.711 Personal history of pulmonary embolism; Z79.4 Long term (current) use of insulin; Z79.01 Long term (current) use of anticoagulants
CPT/HCPCS: 36415; 71045; 74176; 80053; 81001; 82962; 83036; 83605; 83615; 83690; 83880; 84145; 84443; 84484; 85025; 85379; 86140; 87040; 87086; 87400; 93005; 96365; 96366; 96367; 99285; G0378; J0696; J1815; J7030; U0003; U0005